=== PATIENT | male | born 1995 | race Caucasian/White ===

== ENCOUNTER 2022-07-25 21:30 | Emergency (ER) | payer SELFPAY ==
--- NOTE | ~2022-07-25 | XR_ITS ---
EXAMINATION: XR chest 2V DATE: 07/25/2022 23:32 INDICATION: Cough TECHNIQUE: PA and lateral views of the chest are obtained. COMPARISON: None available FINDINGS: The lungs are free of acute opacities. No pleural effusion or pneumothorax. The cardiomedia stinal silhouette is normal. The visualized bones and soft tissues are unremarkable. IMPRESSION: 1. No acute cardiopulmonary abnormality. Reviewed, dictated and finalized at location A.
[2022-07-25 21:35] VITALS: BP 138/55; PULSE 81; RESP 15; TEMP 37; O2SAT 100
[2022-07-25 22:07] VITALS: BP 140/87; BP 140/88; PULSE 90; RESP 17; RESP 19; O2SAT 100
--- NOTE | 2022-07-25 23:02 | PC.NURSE ---
Consent obtained from patient to obtain records from [facility] ER to review. Faxed to [facility] after speaking with [facility]'s house painter helper.
[2022-07-25 23:03] VITALS: PULSE 84; RESP 13; O2SAT 96
--- NOTE | 2022-07-25 23:10 | ED.GENADULT ---
HPI - General Adult General Chief complaint: Unspecified Stated complaint: food stuck in throat Time Seen by Provider: 07/25/22 22:02 History of Present Illness HPI narrative: Patient is a 26-year-old male presenting with nausea and concern for food impaction. Patient states that he was at another hospital earlier today. He was given Dilaudid and then he became nauseated. He was discharged home and then he vomited. States that he threw up a lot of food product and then he felt like something was stuck in his throat. States that he feels like there might still be something stuck. He has not tried to eat or drink anything. He is able to easily swallow his secretions. States that he still feels a little bit nauseated. Denies abdominal pain, chest pain, shortness of breath, diarrhea, dysuria. States that he has had problems with food getting stuck in the past. Related Data Allergies Allergy/AdvReac Type Severity Reaction Status Date / Time buspirone Allergy Other Verified 07/25/22 22:10 hydroxyzine Allergy Other Verified 07/25/22 22:10 tree nut Allergy Other Verified 07/25/22 22:10 Review of Systems Review of Systems: All systems reviewed & are unremarkable except as noted in HPI and below Exam Narrative: GENERAL: Well-appearing, well-nourished, and in no acute distress. HEAD: Normocephalic, atraumatic. EYES: PERRLA and EOMI. ENT: Nares clear, no rhinorrhea or epistaxis. Mucous membranes moist. Swallowing secretions without difficulty NECK: Supple. CHEST: Clear to auscultation. No respiratory distress. HEART: Regular rate and rhythm. ABDOMEN: Soft, nontender, nondistended EXTREMITIES: Normal range of motion. No edema. SKIN: Warm, dry, no rash. NEURO: No focal deficits. Alert and oriented x3. PSYCH: Normal mood and affect. Course Vital Signs Vital signs: Vital Signs Temperature 98.6 F 07/25/22 21:35 Pulse Rate 81 07/25/22 21:35 Respiratory Rate 15 07/25/22 21:35 Blood Pressure 138/55 L 07/25/22 21:35 Pulse Oximetry 100 07/25/22 21:35 Oxygen Delivery Room Air 07/25/22 21:35 Temperature 98.6 F 07/25/22 21:35 Pulse Rate 79 07/26/22 00:30 Respiratory Rate 15 07/26/22 00:30 Blood Pressure 138/92 H 07/26/22 00:30 Pulse Oximetry 96 07/26/22 00:30 Oxygen Delivery Room Air 07/25/22 21:35 Medical Decision Making MDM Narrative Medical decision making narrative: Patient is a 26-year-old male presenting with nausea and possible food impaction. Vitals within normal limits. Patient is well-appearing and in no acute distress. Exam is unremarkable. He is easily swallowing his secretions. He states that he has had a globus like sensation since throwing up. Suspect that this is possibly related to some throat irritation instead of an actual food impaction as he is easily swallowing his secretions. Plan for some labs, fluids, Zofran, Pepcid. Will trial p.o. intake. Blood work is unremarkable. Belly labs are unremarkable. Patient feels significantly improved following Zofran, Pepcid, fluid. He is tolerating p.o. intake. He states that he is from the [place] area and will be returning later this week. I advised that he follow-up closely with his GI physician as well as his PCP. Appropriate return precautions given. Patient voiced understanding and is agreeable with plan. Discharged in stable condition. Differential Diagnosis Differential Diagnosis: food impaction, nausea/vomiting, globus sensation Vital Signs Vital Signs: Vital Signs Temperature 98.6 F 07/25/22 21:35 Pulse Rate 81 07/25/22 21:35 Respiratory Rate 15 07/25/22 21:35 Blood Pressure 138/55 L 07/25/22 21:35 Pulse Oximetry 100 07/25/22 21:35 Oxygen Delivery Room Air 07/25/22 21:35 Temperature 98.6 F 07/25/22 21:35 Pulse Rate 79 07/26/22 00:30 Respiratory Rate 15 07/26/22 00:30 Blood Pressure 138/92 H 07/26/22 00:30 Pulse Oximetry 96 07/26/22 00:30 Oxygen Delivery Room
[2022-07-25] MEDS: ONDANSETRON INJ 4 MG/2 ML VIAL IV PUSH (23:36)
[2022-07-25] MEDS: FAMOTIDINE 20 MG/2 ML VIAL IV PUSH (23:37)
[2022-07-25] MEDS: SODIUM CHLORIDE 0.9% IV 1,000 ML 999 ML IV CONT (23:38)
[2022-07-25 23:39] VITALS: PULSE 79; RESP 12; O2SAT 99
[2022-07-25 23:40] VITALS: BP 123/72; PULSE 82; RESP 14; O2SAT 92
[2022-07-25 23:45] VITALS: PULSE 83; RESP 14; O2SAT 94
[2022-07-25 23:49] LABS: Basophils Absolute Auto 0.1 K/mm3 (0.0-0.1); Basophils Percent Auto 0.6 % (0.2-1.2); Eosinophils Absolute Auto 0.2 K/mm3 (0-0.3); Eosinophils Percent Auto 2.5 % (0-4.4); Hematocrit 43.9 % (42.0-52.0); Hemoglobin 14.4 g/dL (14.0-18.0); Immature Granulocyte Absolute 0.02 K/mm3 (0.00-0.031); Immature Granulocyte Percent A 0.2 % (0-0.5); Lymphocytes Absolute Auto 2.07 K/mm3 (0.9-3.2); Lymphocytes Percent Auto 21.7 % (18.3-44.2); Mean Corpuscular HGB Conc 32.8 g/dl (32-36); Mean Corpuscular Hemoglobin 28.2 pg (26-34); Mean Corpuscular Volume 86.1 fl (80-100); Mean Platelet Volume 11.6 fl (7.4-10.4); Monocytes Absolute Auto 0.7 K/mm3 (0.1-0.6); Monocytes Percent Auto 7.7 % (2.6-8.5); Neutrophils Absolute Auto 6.4 K/mm3 (1.3-6.7); Neutrophils Percent Auto 67.3 % (45.5-73.1); Platelet Count Result 186 k/mm3 (150-375); Red Cell Distribution Width 13.4 % (11.5-14.5); White Blood Count 9.5 K/mm3 (4.5-10.0)
[2022-07-25 23:55] LABS: Alanine Aminotransferase 35 U/L (6-50); Alkaline Phosphatase 31 U/L (38-126); Anion Gap 8 mmol/L (8-16); Aspartate Amino Transferase 13 U/L (17-59); Bilirubin,Total 0.7 mg/dL (0.2-1.3); Blood Urea Nitrogen 11 mg/dL (9-20); Calcium 8.6 mg/dL (8.4-10.2); Carbon Dioxide 28 mmol/L (22-30); Chloride 102 mmol/L (98-107); Estimated CRCL calculation 120 ml/min; Estimated Glomerular Filt Rate > 60; Glucose 94 mg/dL (65-110); Lipase 63 U/L (23-300); Potassium 3.9 mmol/L (3.4-5.0); Sodium 138 mmol/L (137-145)
[2022-07-26] VITALS: PULSE 76; RESP 17; O2SAT 97
[2022-07-26 00:15] VITALS: PULSE 80; RESP 17; O2SAT 96
[2022-07-26 00:30] VITALS: BP 138/92; PULSE 79; RESP 15; O2SAT 96
[2022-07-26 01:25] VITALS: BP 134/72; PULSE 88; RESP 16; O2SAT 100
== END 2022-07-26 01:26 | disposition home or self-care (01) ==
PROVIDERS: Emergency Provider Emergency Medicine
DX: F45.8 Other somatoform disorders (principal); R11.2 Nausea with vomiting, unspecified
CPT/HCPCS: 36415; 71046; 80053; 83690; 85025; 96360; 96361; 96374; 96375; 99284; J2405; J7030

== ENCOUNTER 2022-07-31 | Emergency (ER) | payer SELFPAY ==
--- NOTE | ~2022-07-31 | XR_ITS ---
Portable chest x-ray Comparison: 07/25/2022 Clinical History: Chest pain Findings: Lungs are clear, without focal consolidation or pleural effusion. Cardiomediastinal silho uette is stable. Bones and soft tissues are unremarkable. Impression: Normal chest. Reviewed, dictated and finalized at [facility]. Impression: Normal chest.
[2022-07-31 00:04] VITALS: BP 120/87; PULSE 85; RESP 18; O2SAT 98
--- NOTE | 2022-07-31 00:04 | ECG_ITS ---
Measurements Intervals [place] Rate: 82 P: -8 MA: 92 QRS: 45 QRSD: 90 T: 25 QT: 337 QTc: 395 Interpretive Statements SINUS RHYTHM WITH SHORT MA INTERVAL ABNORMAL ECG NO PREVIOUS ECG AVAILABLE FOR COMPARISON Electronically Signed On 07-31-2022 8:58:52 CDT by Red Urbano M.D.
[2022-07-31 00:21] VITALS: O2SAT 99
[2022-07-31 00:32] LABS: Basophils Absolute Auto 0.1 K/mm3 (0.0-0.1); Basophils Percent Auto 0.6 % (0.2-1.2); Eosinophils Absolute Auto 0.2 K/mm3 (0-0.3); Eosinophils Percent Auto 2.3 % (0-4.4); Hematocrit 45.8 % (42.0-52.0); Hemoglobin 15.2 g/dL (14.0-18.0); Immature Granulocyte Absolute 0.01 K/mm3 (0.00-0.031); Immature Granulocyte Percent A 0.1 % (0-0.5); Lymphocytes Absolute Auto 2.86 K/mm3 (0.9-3.2); Mean Corpuscular HGB Conc 33.2 g/dl (32-36); Mean Corpuscular Hemoglobin 27.9 pg (26-34); Mean Platelet Volume 11.4 fl (7.4-10.4); Monocytes Absolute Auto 0.7 K/mm3 (0.1-0.6); Monocytes Percent Auto 8.3 % (2.6-8.5); Neutrophils Absolute Auto 4.6 K/mm3 (1.3-6.7); Neutrophils Percent Auto 54.7 % (45.5-73.1); Platelet Count Result 237 k/mm3 (150-375); Red Blood Count 5.45 M/mm3 (4.6-6.20); Red Cell Distribution Width 13.5 % (11.5-14.5); White Blood Count 8.4 K/mm3 (4.5-10.0)
--- NOTE | 2022-07-31 00:33 | ED.GENADULT ---
HPI - General Adult General Chief complaint: Chest Pain Stated complaint: CP RADIATING INTO HEAD Time Seen by Provider: 07/31/22 00:30 History of Present Illness HPI narrative: this is a 26-year-old male presenting ED with a chief complaint of chest pain. The patient says the pain started 40 minutes ago, described as a pressure that goes from his throat down to his epigastric area. Is 7/10 and constant. He was seen here 6 days ago for throat irritation and a globus sensation with difficulty swallowing. Patient states that he has been having trouble swallowing solids for the last 3 days. He has been on a liquid diet. No fever chills nausea vomiting lower extremity edema. He is clearing his throat a lot but has no cough. Patient states that he saw a GI specialist in his home town and that he has some sort of esophageal stenosis/stricture that would likely need a surgery/ procedure at some point. He does not know any of the details. He did not follow-up with any of the referrals given to him on his last visit. Related Data Allergies Allergy/AdvReac Type Severity Reaction Status Date / Time buspirone Allergy Other Verified 07/25/22 22:10 hydroxyzine Allergy Other Verified 07/25/22 22:10 tree nut Allergy Other Verified 07/25/22 22:10 [facility] Past Medical History Medical History Anxiety Trouble swallowing Exam Narrative: APPEARANCE: No apparent distress. Head: atraumatic. no swelling in the mouth EYES: EOMI, NOSE: Atraumatic NECK: Trachea midline RESPIRATORY: No increased rate of breathing Clear to auscultation CARDIOVASCULAR: RRR, no peripheral edema ABDOMINAL: Non-distended MUSCULOSKELETAl: No obvious deformities NEURO: Alert. Moving 4/4 extremities SKIN:: Warm, dry. Normal color PSYCHIATRIC: Normal affect Course Vital Signs Vital signs: Vital Signs Pulse Rate 85 07/31/22 00:04 Respiratory Rate 18 07/31/22 00:04 Blood Pressure 120/87 07/31/22 00:04 Pulse Oximetry 98 07/31/22 00:04 Oxygen Delivery Room Air 07/31/22 00:04 Pulse Rate 68 07/31/22 03:31 Respiratory Rate 16 07/31/22 03:31 Blood Pressure 113/75 07/31/22 03:31 Pulse Oximetry 97 07/31/22 03:31 Oxygen Delivery Room Air 07/31/22 00:21 Medical Decision Making MDM Narrative Medical decision making narrative: -Presentation: 26-year-old male with a history of difficulty swallowing presenting with chest pain radiating from his throat to his epigastric area. Patient was seen for similar symptoms about a week ago did not follow-up with any of the specialist referrals. He is tolerating liquids at this time. He is concerned that is something is going on with his heart. 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 Troponins negative x2. Chest x-ray is unremarkable. Independent EKG interpretation: Rhythm [sinus], Rate 82 [place] -[normal], OR -[normal], QRS [narrow], QTC [normal], T waves -[negative for concerning inversions], ST Segments - [Negative for concerning elevations] Final interpretations: [Normal Sinus Rhythm] Dx tests considered but not ordered: PE studies, patient is PERC negative -Procedures: -Interventions: Pepcid 20 mg -Shared decision making / Disposition: Patient's chest pain workup was negative. Patient's pain is likely related to his esophagus whether that is due to esophageal spasm or stricture. patient is still tolerating liquids. Patient will be treated with Pepcid and given GI follow-up.
--- NOTE | 2022-07-31 00:36 | PC.NURSE ---
Water given to pt per v/o Dr. Esqueda
[2022-07-31 00:43] LABS: Alanine Aminotransferase 41 U/L (6-50); Albumin Level 4.3 g/dL (3.5-5.1); Alkaline Phosphatase 29 U/L (38-126); Anion Gap 11 mmol/L (8-16); Aspartate Amino Transferase 15 U/L (17-59); Bilirubin,Total 0.8 mg/dL (0.2-1.3); Blood Urea Nitrogen 8 mg/dL (9-20); Calcium 9.1 mg/dL (8.4-10.2); Carbon Dioxide 22 mmol/L (22-30); Chloride 105 mmol/L (98-107); Estimated CRCL calculation 120 ml/min; Estimated Glomerular Filt Rate > 60; Glucose 91 mg/dL (65-110); Lipase 77 U/L (23-300); Potassium 3.9 mmol/L (3.4-5.0); Sodium 138 mmol/L (137-145)
--- NOTE | 2022-07-31 00:54 | PC.NURSE ---
Pt tolerating small sips of water
[2022-07-31 00:55] LABS: Troponin I < 0.012 ng/mL (0.000-0.034)
[2022-07-31 01:15] VITALS: BP 114/60; PULSE 68; RESP 16; O2SAT 94
[2022-07-31 01:19] LABS: INR 1.1; Prothrombin Time 13.3 Seconds (11.1-14.7)
[2022-07-31 01:21] LABS: Partial Thromboplastin Time 30.3 SECONDS (22.3-36.8)
[2022-07-31] MEDS: FAMOTIDINE 20 MG/2 ML VIAL IV PUSH (01:48)
[2022-07-31 02:02] VITALS: BP 120/72; PULSE 71; RESP 96; O2SAT 96
[2022-07-31 03:31] VITALS: BP 113/75; PULSE 68; RESP 16; O2SAT 97
[2022-07-31 03:33] LABS: Troponin I < 0.012 ng/mL (0.000-0.034)
--- NOTE | 2022-07-31 03:52 | PC.NURSE ---
This RN asked pt if he has anybody he can call to come pick him up. He is not from this area and doesn't have any family here. He is currently living in the [place] [id number] in [place]. Pt does not have his wallet to pay for a cab and does not have [employer] set up on his phone. cena notified and will speak to maintenance worker house trailer about a cab voucher.
[2022-07-31 03:54] VITALS: BP 120/78; PULSE 78; RESP 16; O2SAT 97
== END 2022-07-31 03:55 | disposition home or self-care (01) ==
PROVIDERS: Emergency Provider Emergency Medicine
DX: R07.89 Other chest pain (principal); R13.10 Dysphagia, unspecified
CPT/HCPCS: 36415; 71045; 80053; 83690; 84484; 85025; 85610; 85730; 93005; 96374; 99284